=== PATIENT | female | born 1995 | race Caucasian/White ===

== ENCOUNTER 2018-05-29 08:07 | Emergency (ER) | payer SELFPAY ==
[~2018-05-29] VITALS: Ht 154.9 cm; Wt 87.5 kg
[2018-05-29] MEDS ORDERED: NS IV 1000 ML 1,000 ML IV ONE (08:32)
--- NOTE | 2018-05-29 08:45 | NUR ---
UNALBE TO GET FHT AT THIS X W DOPPLER
[2018-05-29 08:51] LABS: BASOPHILS % (AUTO) 0 % (0-10); EOSINOPHILS # (AUTO) 0.1 10^3/uL (0.0-0.3); EOSINOPHILS % (AUTO) 1 % (0-10); HEMATOCRIT 36 % (35-52); HEMOGLOBIN 11.5 G/DL (11.5-16.0); LYMPHOCYTES % (AUTO) 18 % (12-44); MEAN CORPUSCULAR HEMOGLOBIN 26 PG (25-34); MEAN CORPUSCULAR HGB CONC 32 G/DL (32-36); MEAN CORPUSCULAR VOLUME 81 FL (80-99); MEAN PLATELET VOLUME 12.3 FL (7.4-10.4); MONOCYTES # (AUTO) 0.9 X 10^3 (0.0-1.0); MONOCYTES % (AUTO) 8 % (0-12); NEUTROPHILS % (AUTO) 72 % (42-75); PLATELET COUNT 273 10^3/uL (130-400); RED CELL DISTRIBUTION WIDTH 14.8 % (10.0-14.5); WHITE BLOOD COUNT 11.1 10^3/uL (4.3-11.0)
[2018-05-29 09:11] LABS: ALANINE AMINOTRANSFERASE 21 U/L (0-55); ALBUMIN 3.9 GM/DL (3.2-4.5); ALKALINE PHOSPHATASE 81 U/L (40-136); BILIRUBIN,TOTAL 0.2 MG/DL (0.1-1.0); BUN/CREATININE RATIO 12; CALCIUM 9.1 MG/DL (8.5-10.1); CARBON DIOXIDE 22 MMOL/L (21-32); CHLORIDE 107 MMOL/L (98-107); CREATININE SERUM 0.68 MG/DL (0.60-1.30); GFR ESTIMATED > 60; GLUCOSE 100 MG/DL (70-105); POTASSIUM 3.9 MMOL/L (3.6-5.0); SODIUM 138 MMOL/L (135-145); TOTAL PROTEIN 7.4 GM/DL (6.4-8.2)
--- NOTE | 2018-05-29 09:15 | NUR ---
DR TALKING TO PT CO MISSCARRIAGE AND DR WYNN COMING TO SEE PT
--- NOTE | 2018-05-29 09:42 | ED GU-Female ---
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 PT IS APPROX 17WEEKS . NO CARE. Nursing Sepsis Screen: No Definite Risk Source: patient Exam Limitations: no limitations History of Present Illness Date Seen by Provider: May 29, 2018 Time Seen by Provider: 09:00 Initial Comments Here with report of intermittent cramping and vaginal bleeding/spotting for the last 2 days. We'll get this morning and had heavy bleeding and clots. Has had nausea and vomiting through this time. As well. She reports that she is approximately 17 weeks with her last menstrual period January 26. She did have positive test in February. She was due to see Dr. Sher today but started having increased bleeding and clots and presented to the emergency department. Denies fever or chills or upper respiratory symptoms. Timing/Duration: getting worse, other (2 days) Severity/Quality: moderate, cramping (like contractions) Location: suprapubic Radiation: back Activities at Onset: none Sexual Jarratt History: single partner Associated Symptoms: abdominal pain; No dysuria, No fever/chills; nausea/ vomiting; No urinary frequency Allergies and Home Medications Allergies Coded Allergies: No Known Drug Allergies (Unverified , 05/29/18) Home Medications No Active Prescriptions or Reported Meds Patient Home Medication List Home Medication List Reviewed: Yes Review of Systems Review of Systems Constitutional: see HPI; No chills, No fever EENTM: no symptoms reported Respiratory: no symptoms reported Cardiovascular: no symptoms reported Gastrointestinal: see HPI : Yes LMP: Jan 26, 2018 Musculoskeletal: see HPI Skin: no symptoms reported Psychiatric/Neurological: No Symptoms Reported All Other Systemes Reviewed Negative Unless Noted: Yes Past Dgdkjzp-Gffcjz-Euhscl Hx Past Med/Social Hx: Reviewed Nursing Past Med/Soc Hx Patient Social History Alcohol Use: Denies Use Recreational Drug Use: No Smoking Status: Never a Smoker Recent Foreign Travel: No Contact w/Someone Who Travel: No Recent Infectious Disease Expo: No Recent Hopitalizations: No Seasonal Allergies Seasonal Allergies: No Past Medical History Surgeries: No Respiratory: No Cardiac: No Neurological: No : Yes Last Menstrual Period: Jan 26, 2018 Hx : 4 Hx Para: 6 Hx Total # of Abortions (Sp): 1 Genitourinary: No Gastrointestinal: No Musculoskeletal: No Endocrine: No HEENT: No Cancer: No Psychosocial: No Integumentary: No Blood Disorders: No Family Medical History Reviewed Nursing Family Hx Physical Exam Vital Signs Vital Signs - First Documented 05/29/18 08:30 Temp 98.5 Pulse 79 Resp 18 B/P (MAP) 127/77 (94) Pulse Ox 99 Capillary Refill : Less Than 3 Seconds Height, Weight, BMI Height: 5'1.00" Weight: 193lbs. oz. 87.683791jp; BMI Method:Stated General Appearance: WD/WN, mild distress HEENT: PERRL/EOMI, pharynx normal Neck: full range of motion, supple Cardiovascular: regular rate, rhythm, no murmur Respiratory: lungs clear, normal breath sounds Gastrointestinal: non tender, soft Pelvic: vaginal bleeding, other (cervix open and dilated with bag and/or contents and cervical os.) Back: normal inspection, no CVA tenderness, no vertebral tenderness Extremities: non-tender, normal inspection Neurologic/Psychiatric: alert, normal mood/affect, oriented x 3 Skin: normal color, warm/dry Progress/Results/Core Measures Suspected Sepsis Recent Fever Within 48 Hours: No Infection Criteria Present: None New/Unexplained Altered Menta: No Sepsis Screen: No Definite Risk SIRS Temperature:98.5 Pulse: 79 Respiratory Rate: 18 Laboratory Tests 05/29/18 08:42: White Blood Count 11.1H Blood Pressure 127 /77 Mean: 94 Laboratory Tests 05/29/18 08:42: Creatinine 0.68, Platelet Count 273, Total Bilirubin 0.2 Results/Orders Lab Results Laboratory Tests Test 05/29/18 08:42 Range/Units White Blood Count 11.1 H 4.3-11.0 10^3/uL Red Blood Count 4.44 4.35-5.85 10^6/uL Hemoglobin 11.5 11.5-16.0 G/DL Hematocrit 36 35-52 % Mean Corpuscular Volume 81 80-99 FL Mean Corpuscular Hemoglobin 26 25-34 PG Mean Corpuscular Hemoglobin Concent 32 32-36 G/DL Red Cell Distribution Width 14.8 H 10.0-14.5 % Platelet Count 273 130-400 10^3/uL Mean Platelet Volume 12.3 H 7.4-10.4 FL Neutrophils (%) (Auto) 72 42-75 % Lymphocytes (%) (Auto) 18 12-44 % Monocytes (%) (Auto) 8 0-12 % Eosinophils (%) (Auto) 1 0-10 % Basophils (%) (Auto) 0 0-10 % Neutrophils # (Auto) 8.0 H 1.8-7.8 X 10^3 Lymphocytes # (Auto) 2.0 1.0-4.0 X 10^3 Monocytes # (Auto) 0.9 0.0-1.0 X 10^3 Eosinophils # (Auto) 0.1 0.0-0.3 10^3/uL Basophils # (Auto) 0.0 0.0-0.1 10^3/uL Sodium Level 138 135-145 MMOL/L Potassium Level 3.9 3.6-5.0 MMOL/L Chloride Level 107 98-107 MMOL/L Carbon Dioxide Level 22 21-32 MMOL/L Anion Gap 9 5-14 MMOL/L Blood Urea Nitrogen 8 7-18 MG/DL Creatinine 0.68 0.60-1.30 MG/DL Estimat Glomerular Filtration Rate > 60 BUN/Creatinine Ratio 12 Glucose Level 100 70-105 MG/DL Calcium Level 9.1 8.5-10.1 MG/DL Corrected Calcium 9.2 8.5-10.1 MG/DL Total Bilirubin 0.2 0.1-1.0 MG/DL Aspartate Amino Transf (AST/SGOT) 24 5-34 U/L Alanine Aminotransferase (ALT/SGPT) 21 0-55 U/L Alkaline Phosphatase 81 40-136 U/L Total Protein 7.4 6.4-8.2 GM/DL Albumin 3.9 3.2-4.5 GM/DL My Orders Orders - DAVID BOWEN MD Cbc With Automated Diff (05/29/18 08:31) Abo Rh Type (05/29/18 08:31) Us Ob Preg Late(14-40wks)84392 (05/29/18 08:31) Comprehensive Metabolic Panel (05/29/18 08:31) Saline Lock/Iv-Start (05/29/18 08:31) Saline Lock/Iv-Start (05/29/18 08:31) Ns Iv 1000 Ml (Sodium Chloride 0.9%) (05/29/18 08:32) Ketorolac Injection (Toradol Injection) (05/29/18 10:12) Medications Given in ED Current Medications Medications Dose Ordered Sig/Olivia Route Start Time Stop Time Status Last Admin Dose Admin Carboprost Tromethamine 250 mcg ONCE ONCE IM 05/29/18 10:30 05/29/18 10:31 DC 05/29/18 10:35 250 MCG Carboprost Tromethamine 250 mcg Q15M PRN IM 05/29/18 10:30 05/29/18 15:00 05/29/18 11:14 250 MCG Fentanyl Citrate 50 mcg ONCE ONCE IVP 05/29/18 10:30 05/29/18 10:31 DC 05/29/18 10:35 50 MCG Ketorolac Tromethamine 30 mg STK-MED ONCE .ROUTE 05/29/18 10:12 05/29/18 10:14 DC 05/29/18 10:20 30 MG Sodium Chloride 1,000 ml @ 0 mls/hr Q0M ONCE IV 05/29/18 08:32 05/29/18 08:33 DC 05/29/18 08:42 1,000 MLS/HR Vital Signs/I&O 05/29/18 08:30 Temp 98.5 Pulse 79 Resp 18 B/P (MAP) 127/77 (94) Pulse Ox 99 Capillary Refill : Less Than 3 Seconds Blood Pressure Mean: 94 Progress Note : Progress Note Seen and evaluated. IV, labs, ultrasound pelvis ordered. Ultrasound does show intrauterine demise with miscarriage in progress and sac as well as fetus within the cervical os. No heartbeat detected. Manual exam performed and confirms cervical os open and dilated with contents within the cervical os structure. I did make contact with Dr. Francois who is in [place] and requested I talk with on-call OB. I did discuss with Dr. Burch who recommended on-call OB and then I talked with Dr. Varela who will come see the patient in the emergency department. Patient is O+. 0930: Second IV initiated. Patient currently comfortable. 0952: Dr. Varela here evaluating. 1030: Fetus has delivered but placenta has not. Dr. Varela is managing currently. 1145: Placenta has passed. Patient still has some bleeding. 1225: Dr. Varela is okay with discharge home now. May still have a little bleeding but should improve markedly. We will initiate antibiotics as well as ibuprofen and Tylenol as needed for pain. Small prescription for hydrocodone if needed per Dr. Varela's recommendation. I'll just was discussed with the patient and family who agree with plan. Discharged home with return precautions. Patient verbalize understanding instructions. Diagnostic Imaging Diagonstic Imaging: Ultrasound Plain Films/CT/US/NM/MRI: pelvis Comments NAME: DARIEN [facility]A [facility] REC#: [id number] PT STATUS: REG ER : 1995 PHYSICIAN: DAVID BOWEN MD ADMIT DATE: 05/29/18/ER Draft Date of Exam:05/29/18 US OB PREG LATE(14-40WKS)[id number] INDICATION: patient with vaginal bleeding. TECHNIQUE: OB sonography was performed with transabdominal views. FINDINGS: The uterus measures 12.6 x 8.5 x 8.5 cm. The fetus is visualized near the cervix and there were no detectable heart tones. The size is difficult to measure due to the angle present but appears to be about 12 weeks 5 days. The ovaries could not be seen. There was no free fluid. IMPRESSION: Findings are compatible with demise with no heart tones present. The fetus is at or near the cervix. The approximate age is about 12 weeks 5 days although measurement was difficult due to the angle present. The ovaries could not be visualized but there was no free fluid seen. Dictated on workstation # [id number] Dict: 05/29/18 0943 Trans: 05/29/18 0955 [id number] Interpreted by: MONTSE CORRAL MD Electronically signed by: Departure Impression Primary Impression: Complete miscarriage Disposition: 01 HOME, SELF-CARE Condition: Stable Departure-Patient Inst. Decision time for Depature: 12:31 Referrals: IVONNE FRANCOIS ANGELA C DO Patient Instructions: Miscarriage (DC) Add. Discharge Instructions: All discharge instructions reviewed with patient and/or family. Voiced understanding. Drink plenty of fluids. You may take ibuprofen 800 mg every 8 hours as needed for pain. You may take Tylenol/acetaminophen 1000 mg every 8 hours or prescribed pain medicine but do not take both at the same time as they both have acetaminophen in them. Follow-up with Dr. Francois or Dr. Varela for recheck and further evaluation. Return for worse pain, fever, vomiting, weakness, breathing problems, vaginal bleeding greater than 2 pads per hour for more than 2 hours or other concerns as needed. Take antibiotics as directed. Scripts Hydrocodone Bit/Acetaminophen (Hydrocodone/Acetaminophen 5/325mg Tablet) 1 Tab Tab 1-2 EACH PO Q6H PRN for PAIN-MODERATE MDD 10, #10 TAB 0 Refills Prov: DAVID BOWEN MD 05/29/18 Amoxicillin/Potassium Clav (Augmentin 875-125 Tablet) 1 Each Tablet 1 EACH PO BID, #10 TAB 0 Refills Prov: DAVID BOWEN MD 05/29/18 DAVID BOWEN MD May 29, 2018 09:42
--- NOTE | 2018-05-29 09:55 | Diagnostic Imaging Report ---
INDICATION: patient with vaginal bleeding. TECHNIQUE: OB sonography was performed with transabdominal views. FINDINGS: The uterus measures 12.6 x 8.5 x 8.5 cm. The fetus is visualized near the cervix and there were no detectable heart tones. The size is difficult to measure due to the angle present but appears to be about 12 weeks 5 days. The ovaries could not be seen. There was no free fluid. IMPRESSION: Findings are compatible with demise with no heart tones present. The fetus is at or near the cervix. The approximate age is about 12 weeks 5 days although measurement was difficult due to the angle present. The ovaries could not be visualized but there was no free fluid seen. Dictated by: Dictated on workstation # [id number]
[2018-05-29] MEDS ORDERED: KETOROLAC 30 MG/ML VIAL ONE (10:12)
--- NOTE | 2018-05-29 10:15 | NUR ---
FETUS DELIVERED BY DR WYNN WHEN SPECTULUM INSERTED. PLACENTA NOT DELIVERED
--- NOTE | 2018-05-29 10:21 | Consultation ---
History of Present Illness History of Present Illness Patient Consulted On(ema/time) 05/29/18 10:20 Date Seen by Provider: May 29, 2018 Time Seen by Provider: 10:00 Allergies and Home Medications Allergies Coded Allergies: No Known Drug Allergies (Unverified , 05/29/18) Home Medications No Active Prescriptions or Reported Meds Past Vkvvfnu-Acqwyo-Mpznwo Hx Past Med/Social Hx: Reviewed Nursing Past Med/Soc Hx Patient Social History Alcohol Use: Denies Use Recreational Drug Use: No Smoking Status: Never a Smoker Recent Foreign Travel: No Contact w/Someone Who Travel: No Recent Infectious Disease Expo: No Recent Hopitalizations: No Seasonal Allergies Seasonal Allergies: No Past Medical History Surgeries: No Respiratory: No Cardiac: No Neurological: No : Yes Last Menstrual Period: Jan 26, 2018 Hx : 4 Hx Para: 6 Hx Total # of Abortions (Sp): 1 Genitourinary: No Gastrointestinal: No Musculoskeletal: No Endocrine: No HEENT: No Cancer: No Psychosocial: No Integumentary: No Blood Disorders: No Family Medical History Reviewed Nursing Family Hx Physical Exam-General Problems Physical Exam Vital Signs Vital Signs - First Documented 05/29/18 08:30 Temp 98.5 Pulse 79 Resp 18 B/P (MAP) 127/77 (94) Pulse Ox 99 Capillary Refill : Less Than 3 Seconds JASEN WYNN DO May 29, 2018 10:21
[2018-05-29] MEDS ORDERED: CARBOPROST (HEMABATE) 250 MCG/ML AMP IM ONE (10:30)
[2018-05-29] MEDS ORDERED: fentaNYL INJECTION 100 MCG/2 ML AMP IVP ONE (10:30)
[2018-05-29] MEDS ORDERED: CARBOPROST (HEMABATE) 250 MCG/ML AMP IM PRN (10:30)
[2018-05-29] MEDS ORDERED: DIPHENOXYLATE/ATROPINE 2.5MG/0.025MG (LOMOTIL) TAB PO PRN (10:30)
[2018-05-29] MEDS ORDERED: KETOROLAC 30 MG/ML VIAL IVP ONE (10:30)
[2018-05-29] MEDS ORDERED: MISOPROSTOL 200 MCG (CYTOTEC) TABLET PR ONE (10:30)
--- NOTE | 2018-05-29 11:35 | NUR ---
PLACENTA PASSED DR BOWEN IN ROOM TO CHECK PT
[2018-05-29] MEDS ORDERED: AMOX-358 PO (12:36)
[2018-05-29] MEDS ORDERED: ACHD5005 PO (12:36)
[2018-05-29 12:59] VITALS: BP 127/77
== END 2018-05-29 12:59 | disposition home or self-care (01) ==
LOC: ER 08:08
DX: O03.9 Complete or unspecified spontaneous abortion without complication (principal); Z3A.17 17 weeks gestation of pregnancy
CPT/HCPCS: 36415; 76805; 80053; 85025; 86900; 86901; 96361; 96372; 96374; 96375

== ENCOUNTER 2019-02-12 19:39 | Emergency (ER) | payer MEDICAID, OTHER ==
[~2019-02-12] VITALS: Ht 154.9 cm; Wt 89.3 kg
[~2019-02-12 19:39] MED LIST: ACHD5005 PO; AMOX-358 PO
--- NOTE | 2019-02-12 20:13 | ED GI ---
General Chief Complaint: Abdominal/GI Problems Stated Complaint: N,V,D,27 WEEKS History of Present Illness Date Seen by Provider: Feb 12, 2019 Time Seen by Provider: 20:00 Initial Comments H is 27 week female 7 4 live births and 2 miscarriages here with nausea vomiting diarrhea since this morning loose stools to watery stools no blood vomiting food and liquid with some mild no blood. Some fever no chills will or no by mouth intake. Timing/Duration: 12 Hours Severity/Quality: Moderate Radiation: No Radiation Modifying Factors: Worsens With Eating, Worsens With Movement; Improves With Vomiting Associated Symptoms: No Chest Pain; Fever/Chills, Fatigue; No Headache; Weakness Allergies and Home Medications Allergies Coded Allergies: No Known Drug Allergies (Unverified , 05/29/18) Home Medications Amoxicillin/Potassium Clav 1 Each Tablet, 1 EACH PO BID Prescribed by: DAVID BOWEN on 05/29/18 1236 Hydrocodone Bit/Acetaminophen 1 Tab Tab, 1-2 EACH PO Q6H PRN for PAIN-MODERATE Prescribed by: DAVID BOWEN on 05/29/18 1236 Ondansetron 4 Mg Tab.rapdis, 4 MG PO Q8H Prescribed by: JAMES NESBITT on 02/12/192109 Ondansetron HCl 4 Mg Tab, 4 MG PO Q8H Prescribed by: JAMES NESBITT on 02/12/192115 Patient Home Medication List Home Medication List Reviewed: Yes Review of Systems Review of Systems Constitutional: chills, fever, malaise, weakness EENTM: No Symptoms Reported Respiratory: No Symptoms Reported Cardiovascular: No Symptoms Reported Gastrointestinal: Denies Abdomen Distended, Denies Abdominal Pain, Denies Constipated; Diarrhea, Nausea Genitourinary: No Symptoms Reported Musculoskeletal: No joint swelling; muscle pain Skin: No lesions, No rash Psychiatric/Neurological: No Symptoms Reported Past Qawwtcj-Epkxjb-Zceevr Hx Past Med/Social Hx: Reviewed Nursing Past Med/Soc Hx Patient Social History Recent Foreign Travel: No Contact w/Someone Who Travel: No Recent Hopitalizations: No Seasonal Allergies Seasonal Allergies: No Past Medical History Surgeries: No Respiratory: No Cardiac: No Neurological: No Genitourinary: No Gastrointestinal: No Musculoskeletal: No Endocrine: No HEENT: No Cancer: No Psychosocial: No Integumentary: No Blood Disorders: No Physical Exam Vital Signs Vital Signs - First Documented 02/12/19 19:45 Temp 36.3 Pulse 95 Resp 16 B/P (MAP) 109/66 (80) Pulse Ox 98 O2 Delivery Room Air Capillary Refill : Height/Weight/BMI Height: 5'1.00" Weight: 193lbs. oz. 87.551444rt; BMI Method:Stated General Appearance: WD/WN, mild distress HEENT: PERRL/EOMI, TMs normal, other Neck: non-tender (dry mucous membranes), full range of motion Respiratory: lungs clear, normal breath sounds Cardiovascular: regular rate, rhythm, no murmur Gastrointestinal: abnormal bowel sounds (quiet); No distended, No guarding, No rebound, No tenderness Extremities: no pedal edema, normal capillary refill Neurologic/Psychiatric: no motor/sensory deficits, alert, oriented x 3 Skin: normal color, warm/dry Lymphatic: no adenopathy Progress/Results/Core Measures Results/Orders Lab Results Laboratory Tests Test 02/12/19 20:16 02/12/19 20:20 Range/Units White Blood Count 17.0 H 4.3-11.0 10^3/uL Red Blood Count 4.16 L 4.35-5.85 10^6/uL Hemoglobin 9.5 L 11.5-16.0 G/DL Hematocrit 32 L 35-52 % Mean Corpuscular Volume 76 L 80-99 FL Mean Corpuscular Hemoglobin 23 L 25-34 PG Mean Corpuscular Hemoglobin Concent 30 L 32-36 G/DL Red Cell Distribution Width 14.8 H 10.0-14.5 % Platelet Count 279 130-400 10^3/uL Mean Platelet Volume 12.7 H 7.4-10.4 FL Neutrophils (%) (Auto) 90 H 42-75 % Lymphocytes (%) (Auto) 4 L 12-44 % Monocytes (%) (Auto) 5 0-12 % Eosinophils (%) (Auto) 0 0-10 % Basophils (%) (Auto) 0 0-10 % Neutrophils # (Auto) 15.3 H 1.8-7.8 X 10^3 Lymphocytes # (Auto) 0.7 L 1.0-4.0 X 10^3 Monocytes # (Auto) 0.8 0.0-1.0 X 10^3 Eosinophils # (Auto) 0.0 0.0-0.3 10^3/uL Basophils # (Auto) 0.0 0.0-0.1 10^3/uL Sodium Level 138 135-145 MMOL/L Potassium Level 4.0 3.6-5.0 MMOL/L Chloride Level 105 98-107 MMOL/L Carbon Dioxide Level 19 L 21-32 MMOL/L Anion Gap 14 5-14 MMOL/L Blood Urea Nitrogen 11 7-18 MG/DL Creatinine 0.48 L 0.60-1.30 MG/DL Estimat Glomerular Filtration Rate > 60 BUN/Creatinine Ratio 23 Glucose Level 104 70-105 MG/DL Calcium Level 9.1 8.5-10.1 MG/DL Corrected Calcium 9.4 8.5-10.1 MG/DL Total Bilirubin 0.3 0.1-1.0 MG/DL Aspartate Amino Transf (AST/SGOT) 14 5-34 U/L Alanine Aminotransferase (ALT/SGPT) < 5 0-55 U/L Alkaline Phosphatase 99 40-136 U/L Total Protein 7.9 6.4-8.2 GM/DL Albumin 3.6 3.2-4.5 GM/DL My Orders Orders - JAMES NESBITT JR, MD Cbc And Manual Diff (02/12/19 20:06) Comprehensive Metabolic Panel (02/12/19 20:06) Ua Culture If Indicated (02/12/19 20:06) Ns Iv 1000 Ml (Sodium Chloride 0.9%) (02/12/19 20:15) Ondansetron Injection (Zofran Injectio (02/12/19 20:15) Rx-Ondansetron Po (Rx-Zofran Po) (02/12/19 21:15) Medications Given in ED Current Medications Medications Dose Ordered Sig/Olivia Route Start Time Stop Time Status Last Admin Dose Admin Ondansetron HCl 4 mg ONCE ONCE IVP 02/12/19 20:15 02/12/19 20:16 DC 02/12/19 20:19 4 MG Sodium Chloride 1,000 ml @ 999 mls/hr Q1H ONCE IV 02/12/19 20:15 02/12/19 21:15 DC 02/12/19 20:19 999 MLS/HR Vital Signs/I&O 02/12/19 19:45 Temp 36.3 Pulse 95 Resp 16 B/P (MAP) 109/66 (80) Pulse Ox 98 O2 Delivery Room Air Departure Impression Primary Impression: Gastroenteritis Disposition: 01 HOME, SELF-CARE Condition: Stable Departure-Patient Inst. Referrals: NO,LOCAL PHYSICIAN (PCP/Family) Primary Care Physician Patient Instructions: Nausea and Vomiting, Adult Add. Discharge Instructions: All discharge instructions reviewed with patient and/or family. Voiced understanding. Scripts Ondansetron (Ondansetron Odt) 4 Mg Tab.rapdis 4 MG PO Q8H, #7 TAB Prov: JAMES NESBITT JR, MD 02/12/19 Ondansetron HCl (Zofran) 4 Mg Tab 4 MG PO Q8H, #7 TAB Prov: JAMES NESBITT JR, MD 02/12/19 JAMES NESBITT JR, MD Feb 12, 2019 20:13 POS
[2019-02-12] MEDS ORDERED: ONDANSETRON 4 MG/2 ML (SDV) Z0FRAN IVP ONE (20:15)
[2019-02-12] MEDS ORDERED: NS IV 1000 ML 1,000 ML IV ONE (20:15)
[2019-02-12 20:52] LABS: HEMATOCRIT 32 % (35-52); HEMOGLOBIN 9.5 G/DL (11.5-16.0); MEAN CORPUSCULAR HEMOGLOBIN 23 PG (25-34); MEAN CORPUSCULAR HGB CONC 30 G/DL (32-36); MEAN CORPUSCULAR VOLUME 76 FL (80-99); MEAN PLATELET VOLUME 12.7 FL (7.4-10.4); PLATELET COUNT 279 10^3/uL (130-400); RED CELL DISTRIBUTION WIDTH 14.8 % (10.0-14.5)
[2019-02-12 20:53] LABS: BASOPHILS % (AUTO) 0 % (0-10); EOSINOPHILS % (AUTO) 0 % (0-10); LYMPHOCYTES # (AUTO) 0.7 X 10^3 (1.0-4.0); LYMPHOCYTES % (AUTO) 4 % (12-44); MONOCYTES # (AUTO) 0.8 X 10^3 (0.0-1.0); MONOCYTES % (AUTO) 5 % (0-12); NEUTROPHILS # (AUTO) 15.3 X 10^3 (1.8-7.8); NEUTROPHILS % (AUTO) 90 % (42-75)
[2019-02-12 21:02] LABS: ALANINE AMINOTRANSFERASE < 5 U/L (0-55); ALKALINE PHOSPHATASE 99 U/L (40-136); BILIRUBIN,TOTAL 0.3 MG/DL (0.1-1.0); BUN/CREATININE RATIO 23; CALCIUM 9.1 MG/DL (8.5-10.1); CARBON DIOXIDE 19 MMOL/L (21-32); CHLORIDE 105 MMOL/L (98-107); CREATININE SERUM 0.48 MG/DL (0.60-1.30); GFR ESTIMATED > 60; GLUCOSE 104 MG/DL (70-105); SODIUM 138 MMOL/L (135-145); TOTAL PROTEIN 7.9 GM/DL (6.4-8.2)
[2019-02-12 21:03] LABS: ALBUMIN 3.6 GM/DL (3.2-4.5)
[2019-02-12] MEDS ORDERED: ONDN4T PO (21:09)
[2019-02-12] MEDS ORDERED: ONDA4TAB11 PO (21:10)
[2019-02-12] MEDS ORDERED: RX-ONDANSETRON 4 MG ODT (ZOFRAN) PPK #4 PO PRN (21:15)
[2019-02-12 21:18] VITALS: BP 109/66
[2019-02-12 21:19] LABS: BAND NEUTROPHILS 3 %; BASOPHILS % (MANUAL) 1 %; EOSINOPHILS % (MANUAL) 1 %; LYMPHOCYTES % (MANUAL) 4 %; MONOCYTES % (MANUAL) 5 %; NEUTROPHILS % (MANUAL) 86 %
[2019-02-12 21:20] LABS: HYPOCHROMASIA SLIGHT
[2019-02-12 21:30] LABS: BACTERIA,URINE FEW /HPF; BILIRUBIN,URINE 1+ (NEGATIVE); CLARITY,URINE SLT CLOUDY; COLOR,URINE YELLOW; GLUCOSE, URINE (UA) NEGATIVE (NEGATIVE); KETONES,URINE 3+ (NEGATIVE); LEUKOCYTE ESTERASE ,URINE TRACE (NEGATIVE); NITRITE,URINE NEGATIVE (NEGATIVE); PROTEIN,URINE NEGATIVE (NEGATIVE)
--- OUTSIDE RECORDS SUMMARY | 2019-03-10 10:34 | XMS REPORT | Continuity of Care Document ---
Author Organization Unknown Address Unknown Phone Unavailable Allergies Active Description Code Type Severity Reaction Onset Reported/Identified Relationship to Patient Clinical Status Yes No Known Drug Allergies [id number] Drug Allergy Unknown N/A 05/29/2018 Medications There is no data. Problems Date Dx Coded Attending Type Code Diagnosis Diagnosed By 02/12/2019 JAMES NESBITT MD, Ot K52.9 NONINFECTIVE GASTROENTERITIS AND COLITIS 02/12/2019 JAMES NESBITT MD, Ot O99.612 DISEASES OF THE DGSTV SYS COMP 02/12/2019 JAMES NESBITT MD, Ot R11.2 NAUSEA WITH VOMITING, UNSPECIFIED 02/12/2019 JAMES NESBITT MD, Ot Z3A.27 27 WEEKS GESTATION OF Procedures There is no data. Results Test Result Range Complete blood count (CBC) with automate d white blood cell (WBC) differential - 05/29/18 08:42 Blood leukocytes automated count (number/volume) 11.1 10*3/uL 4.3-11.0 Blood erythrocytes automated count (number/volume) 4.44 10*6/uL 4.35-5.85 Venous blood hemoglobin measurement (mass/volume) 11.5 g/dL 11.5-16.0 Blood hematocrit (volume fraction) 36 % 35-52 Automated erythrocyte mean corpuscular volume 81 [ foz_us] 80-99 Automated erythrocyte mean corpuscular h emoglobin (mass per erythrocyte) 26 pg 25-34 Automated erythrocyte mean corpuscular h emoglobin concentration measurement (mass/volume) 32 g/dL 32-36 Automated erythrocyte distribution width ratio 14. 8 % 10.0- 14.5 Automated blood platelet count (count/volume) 273 10*3/uL 130-400 Automated blood platelet mean volume measurement 12.3 [foz_us] 7.4-10.4 Automated blood neutrophils/100 leukocytes 72 % 42-75 Automated blood lymphocytes/100 leukocytes 18 % 12-44 Blood monocytes/100 leukocytes 8 % 0-12 Automated blood eosinophils/100 leukocytes 1 % 0-10 Automated blood basophils/100 leukocytes 0 % 0-10 Blood neutrophils automated count (number/volume) 8.0 10*3 1.8-7.8 Blood lymphocytes automated count (number/volume) 2.0 10*3 1.0-4.0 Blood monocytes automated count (number/volume) 0. 9 10*3 0.0-1.0 Automated eosinophil count 0.1 10*3/uL 0 .0-0.3 Automated blood basophil count (count/volume) 0.0 10*3/uL 0.0-0.1 Comprehensive metabolic panel - 05/29/18 08:42 Serum or plasma sodium measurement (moles/volume) 138 mmol/L 135-145 Serum or plasma potassium measurement (moles/volume) 3.9 mmol/L 3.6-5.0 Serum or plasma chloride measurement (moles/volume) 107 mmol/L 98-107 Carbon dioxide 22 mmol/L 21-32 Serum or plasma anion gap determination (moles/volume) 9 mmol/L 5-14 Serum or plasma urea nitrogen measurement (mass/volume ) 8 mg/dL 7-18 Serum or plasma creatinine measurement (mass/volume) 0.68 mg/dL 0.60-1.30 Serum or plasma urea nitrogen/creatinine mass ratio 12 NRG Serum or plasma creatinine measurement w ith calculation of estimated glomerular filtration rate > NRG Serum or plasma glucose measurement (mass/volume) 100 mg/dL 70-105 Serum or plasma calcium measurement (mass/volume) 9.1 mg/dL 8.5-10.1 Serum or plasma total bilirubin measurement (mass/volu me) 0.2 mg/dL 0.1-1.0 Serum or plasma alkaline phosphatase alex surement (enzymatic activity/volume) 81 U/L 40-136 Serum or plasma aspartate aminotransfera se measurement (enzymatic activity/volume) 24 U/L 5-34 Serum or plasma alanine aminotransferase measurement (enzymatic activity/volume) 21 U/L 0-55 Serum or plasma protein measurement (mass/volume) 7.4 g/dL 6.4-8.2 Serum or plasma albumin measurement (mass/volume) 3.9 g/dL 3.2-4.5 CALCIUM CORRECTED 9.2 mg/dL 8.5-10.1 ABO+Rh group - 05/29/18 08:42 ABO+Rh group OP NRG Transfusion band number [id number] NRG GC/CHLAMYDIA (SWAB OR URINE)-RAPID - 16:09 CHLAMYDIA TRACHOMATIS RNA, TMA NOT DETECTED NOT DETECTED NEISSERIA GONORRHOEAE RNA, TMA NOT DETECTED NOT DETECTED COMMENT NRG SUREPATH PAP RFX HPV mRNA E6/E7 - 16:09 CLINICAL INFORMATION: NRG LMP: NRG PREV. PAP: NRG PREV. BX: NRG SOURCE: Vagina NRG STATEMENT OF ADEQUACY: NRG INTERPRETATION/RESULT: NRG TELEPHONE ORDER DISPATCHER: NRG COMMENT NRG HEPATITIS PROFILE - 11/29/18 17:06 HEPATITIS A IGM NON-REACTIVE NON-REACTI VE HEPATITIS B SURFACE ANTIGEN NON-REACTIVE NON-REACTIVE HEPATITIS B CORE ANTIBODY (IGM) NON-REACTIVE NON-REACTIVE HEPATITIS C ANTIBODY NON-REACTIVE NON-R EACTIVE SIGNAL TO CUT-OFF 0.16 <1.00 HIV ANTIGEN/ANTIBODY - 11/29/18 17:06 HIV AG/AB, 4TH GEN NON-REACTIVE NON-JACEK CTIVE CBC - 11/29/18 17:06 WHITE BLOOD CELL COUNT 11.3 Thousand/uL 3.8-10.8 RED BLOOD CELL COUNT 4.14 Million/uL 3.8 0-5.10 HEMOGLOBIN 9.7 g/dL 11.7-15.5 HEMATOCRIT 31.3 % 35.0-45.0 MCV 75.6 fL 80.0-100.0 MCH 23.4 pg 27.0-33.0 MCHC 31.0 g/dL 32.0-36.0 RDW 16.4 % 11.0-15.0 PLATELET COUNT 271 Thousand/uL 140-400 MPV 12.6 fL 7.5-12.5 ABSOLUTE NEUTROPHILS 8362 cells/uL 1500- 7800 ABSOLUTE LYMPHOCYTES 2034 cells/uL 850-3 900 ABSOLUTE MONOCYTES 836 cells/uL 200-950 ABSOLUTE EOSINOPHILS 45 cells/uL 15-500 ABSOLUTE BASOPHILS 23 cells/uL 0-200 NEUTROPHILS 74 % NRG LYMPHOCYTES 18.0 % NRG MONOCYTES 7.4 % NRG EOSINOPHILS 0.4 % NRG BASOPHILS 0.2 % NRG BLOOD TPYE/RH FACTOR - 11/29/18 17:06 ABO GROUP O NRG RH TYPE RH(D) POSITIVE NRG SYPHILIS (RPR W/ REFLEX CONFIRMATION) - 11/29/18 17:06 RPR (DX) W/REFL TITER AND CONFIRMATORY TESTING NON-REACTIVE NON-REACTIVE QUAD SCREEN - 11/29/18 17:06 Maternal Weight 188 lbs NRG Est'd Date of Delivery 05/10/2019 NRG ALLIE Determined by LMP NRG Mother's Ethnic Origin NRG Number of Fetuses 1 NRG Insulin Depend Diabetic NO NRG Repeat Specimen NO NRG Hx Of Neural Tube Defects NO NRG Prev Down Synd NO NRG Donor Egg NO NRG Donor Age: Egg Retrieval NOT GIVEN NRG INTERPRETATION: NRG Risk for ONTD <1 IN 5000 NRG Age Risk Down Syndrome 1 IN 1006 NRG AMBROSE Down Syndrome Risk <1 IN 5000 NRG AMBROSE Trisomy 18 Risk <1 IN 5000 NRG AFP, Serum 19.5 ng/mL NRG AFP MoM 0.62 NRG Estriol, Free 0.97 ng/mL NRG Estriol MoM 1.10 NRG hCG, Serum 17.78 IU/mL NRG hCG MoM 0.70 NRG Inhibin A, Dimeric 157 pg/mL NRG Inhibin A MoM 1.05 NRG COMMENTS: NRG COMMENT NRG Calc'd Gestational Age 16.9 weeks NRG Cigarette smoker NOT GIVEN NRG RUBELLA IMMUNE STATUS - 11/29/18 17:06 RUBELLA ANTIBODY (IGG) 1.96 index NRG TEST IN QUESTION- MISSING REQUIRED INFO - 11/29/18 17:06 COMMENT NRG MISSING INFO: NRG RESOLUTION: NRG COMMENT NRG Blood CBC with ordered manual differenti al panel - 02/12/19 20:16 Blood leukocytes automated count (number/volume) 17.0 10*3/uL 4.3-11.0 Blood erythrocytes automated count (number/volume) 4.16 10*6/uL 4.35-5.85 Venous blood hemoglobin measurement (mass/volume) 9.5 g/dL 11.5-16.0 Blood hematocrit (volume fraction) 32 % 35-52 Automated erythrocyte mean corpuscular volume 76 [ foz_us] 80-99 Automated erythrocyte mean corpuscular h emoglobin (mass per erythrocyte) 23 pg 25-34 Automated erythrocyte mean corpuscular h emoglobin concentration measurement (mass/volume) 30 g/dL 32-36 Automated erythrocyte distribution width ratio 14. 8 % 10.0- 14.5 Automated blood platelet count (count/volume) 279 10*3/uL 130-400 Automated blood platelet mean volume measurement 12.7 [foz_us] 7.4-10.4 Automated blood neutrophils/100 leukocytes 90 % 42-75 Automated blood lymphocytes/100 leukocytes 4 % 12-44 Blood monocytes/100 leukocytes 5 % NRG Automated blood eosinophils/100 leukocytes 0 % 0-10 Automated blood basophils/100 leukocytes 0 % 0-10 Blood neutrophils automated count (number/volume) 15.3 10*3 1.8-7.8 Blood lymphocytes automated count (number/volume) 0.7 10*3 1.0-4.0 Blood monocytes automated count (number/volume) 0. 8 10*3 0.0-1.0 Automated eosinophil count 0.0 10*3/uL 0 .0-0.3 Automated blood basophil count (count/volume) 0.0 10*3/uL 0.0-0.1 Manual blood segmented neutrophils/100 leukocytes 86 % NRG Blood band neutrophils/100 leukocytes 3 % NRG Manual blood lymphocytes/100 leukocytes 4 % NRG Manual eosinophils/100 leukocytes in nose 1 % NRG Manual blood basophils/100 leukocytes 1 % NRG Blood hypochromia detection by light microscopy [facility] NR Comprehensive metabolic panel - 02/12/19 20:16 Serum or plasma sodium measurement (moles/volume) 138 mmol/L 135-145 Serum or plasma potassium measurement (moles/volume) 4.0 mmol/L 3.6-5.0 Serum or plasma chloride measurement (moles/volume) 105 mmol/L 98-107 Carbon dioxide 19 mmol/L 21-32 Serum or plasma anion gap determination (moles/volume) 14 mmol/L 5-14 Serum or plasma urea nitrogen measurement (mass/volume ) 11 mg/dL 7-18 Serum or plasma creatinine measurement (mass/volume) 0.48 mg/dL 0.60-1.30 Serum or plasma urea nitrogen/creatinine mass ratio 23 NRG Serum or plasma creatinine measurement w ith calculation of estimated glomerular filtration rate > NRG Serum or plasma glucose measurement (mass/volume) 104 mg/dL 70-105 Serum or plasma calcium measurement (mass/volume) 9.1 mg/dL 8.5-10.1 Serum or plasma total bilirubin measurement (mass/volu me) 0.3 mg/dL 0.1-1.0 Serum or plasma alkaline phosphatase alex surement (enzymatic activity/volume) 99 U/L 40-136 Serum or plasma aspartate aminotransfera se measurement (enzymatic activity/volume) 14 U/L 5-34 Serum or plasma alanine aminotransferase measurement (enzymatic activity/volume) < U/L 0-55 Serum or plasma protein measurement (mass/volume) 7.9 g/dL 6.4-8.2 Serum or plasma albumin measurement (mass/volume) 3.6 g/dL 3.2-4.5 CALCIUM CORRECTED 9.4 mg/dL 8.5-10.1 Complete urinalysis with reflex to cultu re - 02/12/19 20:20 Urine color determination YELLOW NRG Urine clarity determination SLT CLOUDY NRG Urine pH measurement by test strip 6.0 5-9 Specific gravity of urine by test strip 1.025 1.016-1.022 Urine protein assay by test strip, semi-quantitative NEGATIVE NEGATIVE Urine glucose detection by automated test strip NE GATIVE NEGATIVE Erythrocytes detection in urine sediment by light micr oscopy NEGATIVE NEGATIVE Urine ketones detection by automated test strip 3+ NEGATIVE Urine nitrite detection by test strip NEGATIVE NEGATIVE Urine total bilirubin detection by test strip 1+ NEGATIVE Urine urobilinogen measurement by automated test strip (mass/volume) 0.2 mg/dL < = 1.0 Urine leukocyte esterase detection by dipstick TRA CE NEGATIVE Automated urine sediment erythrocyte cou nt by microscopy (number/high power field) NONE NRG Automated urine sediment leukocyte count by microscopy (number/high power field) [HPF] NRG Bacteria detection in urine sediment by light microsco py FEW NRG Squamous epithelial cells detection in u rine sediment by light microscopy 5-10 NRG Crystals detection in urine sediment by light microsco py NONE NRG Casts detection in urine sediment by light microscopy NONE NRG Mucus detection in urine sediment by light microscopy MODERATE NRG Complete urinalysis with reflex to culture YES NRG Bacterial urine culture - 02/12/19 20:20 Bacterial urine culture 3 OR MORE NRG COLONY COUNT >100,000/ML NRG FTX;REPORTABLE GRAM POSTIVES, SUGGESTING PROBABLE NRG FREE TEXT ENTRY 2 COLLECTION CONTAMINATION WITH SK IN HAWK NRG FREE TEXT ENTRY 3 NO SUSCEPTIBILITY PERFORMED NRG GLUCOSE GAIL 1 HOUR - 02/15/19 10:32 GLUCOSE, POSTPRANDIAL/ 1 HOUR 108 mg/dL See Note: CBC - 02/15/19 10:32 WHITE BLOOD CELL COUNT 6.2 Thousand/uL 3 .8-10.8 RED BLOOD CELL COUNT 3.56 Million/uL 3.8 0-5.10 HEMOGLOBIN 8.1 g/dL 11.7-15.5 HEMATOCRIT 26.2 % 35.0-45.0 MCV 73.6 fL 80.0-100.0 MCH 22.8 pg 27.0-33.0 MCHC 30.9 g/dL 32.0-36.0 RDW 14.4 % 11.0-15.0 PLATELET COUNT 249 Thousand/uL 140-400 MPV 12.9 fL 7.5-12.5 ABSOLUTE NEUTROPHILS 4284 cells/uL 1500- 7800 ABSOLUTE LYMPHOCYTES 1172 cells/uL 850-3 900 ABSOLUTE MONOCYTES 688 cells/uL 200-950 ABSOLUTE EOSINOPHILS 37 cells/uL 15-500 ABSOLUTE BASOPHILS 19 cells/uL 0-200 NEUTROPHILS 69.1 % NRG LYMPHOCYTES 18.9 % NRG MONOCYTES 11.1 % NRG EOSINOPHILS 0.6 % NRG BASOPHILS 0.3 % NRG SYPHILIS (RPR W/ REFLEX CONFIRMATION) - 02/15/19 10:32 RPR (DX) W/REFL TITER AND CONFIRMATORY TESTING NON-REACTIVE NON-REACTIVE Encounters ACCT No. Visit Date/Time Discharge Status Pt. Type Provider Facility Loc./Unit Complaint [id number] 02/27/2019 10:30:00 02/27/2019 23:59:5 9 [id number] 02/15/2019 09:45:00 Document Registration [id number] 11/29/2018 15:15:00 Document Registration [id number] 02/12/2019 19:43:00 21:19:00 DIS Emergency DELICIA THOMPSON, JAMES Farrell [facility] ER FS N,V,D,27 WEEKS [id number] 05/29/2018 08:08:00 12:59:00 DIS Emergency JESSI THOMPSON, DAVID Cooney [facility] ER VAGINAL BLEEDIN G/CLOTS;17 WKS
== END 2019-02-12 21:19 | disposition home or self-care (01) ==
LOC: EDUNIT# 19:39 → ER FS 19:43
DX: O99.612 Diseases of the digestive system complicating pregnancy, second trimester (principal); K52.9 Noninfective gastroenteritis and colitis, unspecified; Z3A.27 27 weeks gestation of pregnancy
CPT/HCPCS: 36415; 80053; 81000; 85007; 85027; 87088; 96361; 96374

== ENCOUNTER 2019-04-13 21:47 | Outpatient (CLI) | payer MEDICAID ==
[~2019-04-13] VITALS: Ht 154.9 cm; Wt 91.2 kg
[~2019-04-13 21:47] MED LIST changes: +ONDA4TAB11 PO; +ONDN4T PO
--- NOTE | 2019-04-13 21:50 | NUR ---
DARIEN MANCERA presented to unit via ambulation from ED, accompanied by family members, with c/o CONTRACTIONS. DARIEN MANCERA weighed, gowned, voided, and to bed. EFSD and TOCO applied, VS taken. DARIEN MANCERA oriented to bed controls, call light, TV, heat, and A/C controls.
[2019-04-13] MEDS ORDERED: PREN-142 PO (21:56)
[2019-04-13] MEDS ORDERED: FERR-84 PO (21:57)
[2019-04-13 22:12] LABS: BILIRUBIN,URINE NEGATIVE (NEGATIVE); CLARITY,URINE CLEAR; COLOR,URINE YELLOW; GLUCOSE, URINE (UA) NEGATIVE (NEGATIVE); KETONES,URINE 1+ (NEGATIVE); LEUKOCYTE ESTERASE ,URINE NEGATIVE (NEGATIVE); NITRITE,URINE NEGATIVE (NEGATIVE); PH,URINE 6.5 (5-9); PROTEIN,URINE NEGATIVE (NEGATIVE)
[2019-04-13 22:23] VITALS: BP 124/60
[2019-04-13 22:25] LABS: BACTERIA,URINE FEW /HPF; SQUAMOUS EPITHELIAL CELL,UR 0-2 /HPF; WBC,URINE 0-2 /HPF
[2019-04-13] MEDS ORDERED: LACTATED RINGERS 1,000 ML IV ONE (22:45)
[2019-04-13] MEDS ORDERED: D5 LR IV SOLUTION 1,000 ML IV ONE (23:48)
[2019-04-14] VITALS: BP 118/73
[2019-04-14] MEDS ORDERED: D5 LR IV SOLUTION 1,000 ML IV SCH
--- NOTE | 2019-04-14 07:33 | NUR ---
IV dc'd - pt ready for discharge. Outpatient OB instructions given. Discussed probably spotting from vaginal exams. Verbalizes understanding. Ambulated to exit with family.
--- NOTE | 2019-04-15 08:27 | Physician Query-Final Dx ---
DAMIAN HUANG 04/15/1929: Clinic Account Progress/Dx Physician Query: Please give diagnosis Please include # weeks gestation Date of Service Apr 13, 2019 at 21:47 IVONNE MARTINEZ DO 04/15/192045: Clinic Account Progress/Dx DIAGNOSIS: Diagnosis Intrauterine at 36 weeks 2. Contractions 3. Dehydration DAMIAN HUANG Apr 15, 2019 08:27 IVONNE MARTINEZ DO Apr 15, 2019 20:46
== END 2019-04-14 07:33 | disposition home or self-care (01) ==
LOC: WSo 21:47 → LDRP 21:47 → WSo 04-14 07:33
PROVIDERS: ATTEND Obstetrics & Gynecology
DX: Z34.93 Encounter for supervision of normal pregnancy, unspecified, third trimester (principal); E86.0 Dehydration; Z3A.36 36 weeks gestation of pregnancy
CPT/HCPCS: 81000; 96360; 99214

== ENCOUNTER 2019-04-22 20:50 | Outpatient (CLI) | payer MEDICAID ==
[~2019-04-22] VITALS: Ht 157 cm; Wt 91.0 kg
[~2019-04-22 20:50] MED LIST changes: +FERR-84 PO; +PREN-142 PO
--- NOTE | 2019-04-22 20:50 | NUR ---
DARIEN MANCERA presented to unit via ambulation from home, accompanied by Family, with c/o CONTRACTIONS. DARIEN MANCERA weighed, gowned, voided, and to bed. EFHM and TOCO applied, VS taken. DARIEN MANCERA oriented to bed controls, call light, TV, heat, and A/C controls.
[2019-04-22 21:01] VITALS: BP 134/64
[2019-04-22 22:10] VITALS: BP 120/56
--- NOTE | 2019-04-22 22:30 | NUR ---
D/C instructions given & explained, pt. verbalized understanding & signed, copy of D/C instructions to pt. Pt. left WS ambulatory, escorted by SO & mother, to home via private vehicle.
--- NOTE | 2019-04-23 09:26 | Physician Query-Final Dx ---
DAMIAN HUANG 04/23/19 0926: Clinic Account Progress/Dx Physician Query: Please give diagnosis Please include # weeks gestation Date of Service Apr 22, 2019 at 20:50 IVONNE MARTINEZ DO 04/29/19 0702: Clinic Account Progress/Dx DIAGNOSIS: Diagnosis Intrauterine at 37 weeks 2. Pelvic Pain 3. Contractions DAMIAN HUANG Apr 23, 2019 09:26 IVONNE MARTINEZ DO Apr 29, 2019 07:02
[2019-05-07] MEDS ORDERED: DCS100C PO (05:44)
[2019-05-07] MEDS ORDERED: ACET-93 PO (05:44)
[2019-05-07] MEDS ORDERED: IBUP-1780 PO (05:44)
[2019-05-07] MEDS ORDERED: OXC5T PO (05:44)
--- NOTE | 2019-05-07 07:19 | Anesthesia-Regional Post-Op ---
Regional Patient Condition Mental Status: Alert, Oriented x3 Circulation: Same as Pre-Op Headache: Absent Sensation: Full Recovery Motor Block: Absent Post Op Complications Complications None Follow Up Care/Instructions Patient Instructions None needed. Anesthesia/Patient Condition Patient is doing well, no complaints, stable vital signs, no apparent adverse anesthesia problems. No complications reported per nursing. BERNARDA LIU CRNA May 07, 2019 07:19
== END 2019-04-22 22:30 | disposition home or self-care (01) ==
LOC: WSo 20:50
PROVIDERS: ATTEND Obstetrics & Gynecology
DX: O26.893 Other specified pregnancy related conditions, third trimester (principal); O62.9 Abnormality of forces of labor, unspecified; R10.2 Pelvic and perineal pain; Z3A.37 37 weeks gestation of pregnancy
CPT/HCPCS: 99213

== ENCOUNTER 2019-05-06 05:50 | Inpatient (IN) | payer MEDICAID ==
[2019-05-06] VITALS (49 sets, daily range): BP systolic 81–137; BP diastolic 40–73
[~2019-05-06] VITALS: Ht 154.9 cm; Wt 94.0 kg
[~2019-05-06 05:50] MED LIST changes: +D5 LR IV SOLUTION 1,000 ML IV ONE
--- NOTE | 2019-05-06 05:55 | NUR ---
DARIEN MANCERA presented to unit via ambulation from ED, accompanied by s.o. and family member for induction of labor. DARIEN MANCERA weighed, gowned, voided, and to bed. EFHM and TOCO applied, VS taken. DARIEN MANCEAR oriented to bed controls, call light, TV, heat, and A/C controls.
[2019-05-06] MEDS ORDERED: CATHETER FLUSH 10 ML SYR IV PRN (06:00)
[2019-05-06] MEDS ORDERED: MINERAL OIL CONCENTRATE 99.9% 15 ML UDC TOP PRN (06:00)
[2019-05-06] MEDS: D5 LR IV SOLUTION 1,000 ML IV SCH ×2 (06:19→13:50)
[2019-05-06 06:20] LABS: BASOPHILS % (AUTO) 0 % (0-10); EOSINOPHILS % (AUTO) 0 % (0-10); HEMATOCRIT 28 % (35-52); HEMOGLOBIN 8.5 G/DL (11.5-16.0); LYMPHOCYTES # (AUTO) 1.5 X 10^3 (1.0-4.0); LYMPHOCYTES % (AUTO) 10 % (12-44); MEAN CORPUSCULAR HEMOGLOBIN 22 PG (25-34); MEAN CORPUSCULAR HGB CONC 30 G/DL (32-36); MEAN CORPUSCULAR VOLUME 74 FL (80-99); MONOCYTES # (AUTO) 1.6 X 10^3 (0.0-1.0); MONOCYTES % (AUTO) 11 % (0-12); NEUTROPHILS # (AUTO) 11.2 X 10^3 (1.8-7.8); NEUTROPHILS % (AUTO) 78 % (42-75); PLATELET COUNT 180 10^3/uL (130-400); RED CELL DISTRIBUTION WIDTH 17.8 % (10.0-14.5); WHITE BLOOD COUNT 14.3 10^3/uL (4.3-11.0)
[2019-05-06] MEDS ORDERED: SUFENTA 0.6MCG/ML BUPIVA 0.125 100 ML ONE (07:07)
[2019-05-06] MEDS ORDERED: BUPIVACAINE 0.25% 30 ML (SENSORCAINE) VIAL ONE (07:34)
[2019-05-06] MEDS ORDERED: fentaNYL INJECTION 100 MCG/2 ML AMP ONE (07:34)
--- NOTE | 2019-05-06 07:43 | History & Physical-OB/GYN ---
History of Present Illness History of Present Illness Reason for visit/HPI Pitocin Induction of Labor at 39 weeks Date of Admission May 06, 2019 at 05:50 Date Seen by a Provider: May 06, 2019 Time Seen by a Provider: 07:20 I consulted on this patient on 05/06/19 07:37 Attending Physician Enrique Francois DO Admitting Physician Enrique Francois DO Consult Allergies and Home Medications Allergies Coded Allergies: No Known Drug Allergies (Unverified , 05/29/18) Home Medications Ferrous Sulfate 325 Mg Tablet, 325 MG PO DAILY, (Reported) Vit No.124/Iron/FA 1 Each Tablet, 1 EACH PO DAILY, (Reported) Patient Home Medication List Home Medication List Reviewed: Yes Past Sxxtwsy-[place]ly[place] Hx Patient Social History Marrital Status: single Number of Children: 4 Number of living children: 4 Employed/Student: unemployed [employer] Hand Smoke Exposure: No Recent Foreign Travel: No Contact w/other who traveled: No Recent Hopitalizations: No Seasonal Allergies Seasonal Allergies: No Surgeries No Respiratory No Cardiovascular No Neurological No Genitourinary No Gastrointestinal No Musculoskeletal No Endocrine History of Endocrine Disorders: No HEENT History of HEENT Disorders: No Cancer No Psychosocial History of Psychiatric Problem: No Integumentary History of Skin or Integumenta: No Blood Transfusions History of Blood Disorders: No Review of Systems Constitutional: see HPI Physical Exam Physical Exam Vital Signs Vital Signs Date Time Temp Pulse Resp B/P (MAP) Pulse Ox O2 Delivery O2 Flow Rate FiO2 05/06/19 06:00 36.9 99 18 98 Room Air Capillary Refill : Less Than 3 Seconds Labs Laboratory Tests 05/06/19 06:05: White Blood Count 14.3H, Red Blood Count 3.84L, Hemoglobin 8.5L, Hematocrit 28L, Mean Corpuscular Volume 74L, Mean Corpuscular Hemoglobin 22L, Mean Corpuscular Hemoglobin Concent 30L, Red Cell Distribution Width 17.8H, Platelet Count 180, Mean Platelet Volume , Neutrophils (%) (Auto) 78H, Lymphocytes (%) (Auto) 10L, Monocytes (%) (Auto) 11, Eosinophils (%) (Auto) 0, Basophils (%) (Auto) 0, Neutrophils # (Auto) 11.2H, Lymphocytes # (Auto) 1.5, Monocytes # (Auto) 1.6H, Eosinophils # (Auto) 0.0, Basophils # (Auto) 0.0 General Appearance: No Apparent Distress, WD/WN Respiratory: Chest Non Tender, Lungs Clear Cardiovascular: Regular Rate, Rhythm, No Murmur Abdominal: normal bowel sounds, non tender Labia: WNL Vagina: WNL Cervix: WNL Cervix OS: open (2 cm) Uterus: Enlarged (gravid) Extremity: Normal Inspection, Non Tender, No Calf Tenderness Assessment/Plan Assessment and Plan Assessment: Intrauterine at 39 3/7 weeks Plan: Pitocin Induction of Labor. Artificial Rupture of Membranes. Epidural anesthesia. I expect a vaginal delivery. Admission Diagnosis Admission Status: Inpatient Order (span 2 midnights) Reason for Inpatient Admission: Pitocin Induction of Labor Clinical Quality Measures DVT/VTE Risk/Contraindication: Risk Factor Score Per Nursin RFS Level Per Nursing on Admit: 1=Low/No VTE ENRIQUE WARD DO May 06, 2019 07:43
[2019-05-06] MEDS ORDERED: FLU QUADRIvalent (5+ YOA) 2019-2020 (AFLURIA) 0.5 ML IM ONE (08:00)
[2019-05-06] MEDS ORDERED: OXYTOCIN PRE-MIX DRIP 500 ML IV ONE (08:17)
[2019-05-06] MEDS ORDERED: NALOXONE 0.4 MG/ML 1 ML (NARCAN) VIAL IV PRN (12:00)
[2019-05-06] MEDS ORDERED: LACTATED RINGERS 1,000 ML IV ONE ×2 (12:00)
[2019-05-06] MEDS ORDERED: ONDANSETRON 4 MG/2 ML (SDV) Z0FRAN IV PRN (12:00)
[2019-05-06] MEDS ORDERED: EPIDURAL (SUFENTA 0.6MCG/ML BUPIVA 0.125%) 100 ML BAG EPI PRN (12:00)
--- NOTE | 2019-05-06 15:49 | NUR ---
dr haynes massaging fundus no clots expressed.
--- NOTE | 2019-05-06 15:50 | NUR ---
pericare performed by dr haynes with chlorhex. assisted out of stirrups
--- NOTE | 2019-05-06 15:53 | NUR ---
epidural removed tip intact.
[2019-05-06] MEDS ORDERED: OXYTOCIN PRE-MIX DRIP 500 ML IV SCH (15:59)
[2019-05-06] MEDS ORDERED: TETANUS,DIPTH,PERTUSS P/F (BOOSTRIX) 0.5 ML VIAL IM ONE (16:00)
[2019-05-06] MEDS ORDERED: MEASLES,MUMPS,RUBELLA 1 EA INJ SQ ONE (16:00)
[2019-05-06] MEDS ORDERED: BENZOCAINE/MENTHOL (DERMOPLAST) 60 ML CAN TP PRN (16:00)
[2019-05-06] MEDS ORDERED: DIBUCAINE (NUPERCAINAL) 1% OINT 30 GM TOP PRN (16:00)
[2019-05-06] MEDS ORDERED: WITCH HAZEL(TUCKS) 40 EA JAR TOP PRN (16:00)
--- NOTE | 2019-05-06 16:05 | OB Labor & Delivery Record ---
Vag Delivery Note Vag Delivery Note Date of Delivery: 05/06/19 Preoperative Diagnosis: Karon Egan is a (24 /Para / ,Gestational Age (wks)39with [] Postoperative Diagnosis: Same Surgeon: IVONNE MARTINEZ Label Drier: [None] Anesthesia: [Epidural] Delivery Type: [Normal Spontaneous Vaginal Delivery] Findings: [] Viable [female] , apgars [9, 9], weight [8 lbs 9 oz] Lacerations: Superficial perineal body skin lacerations, hemostatic, not repaired Intact placenta with 3 vessel cord. No nuchal cord, body cord or shoulder dystocia Cytotec 800 mcg placed for hemorrhage prophylaxis Estimated Blood Loss: [300] ml Complications: None Condition: Stable Description of Procedure: The patient is a 24 year old female who presented [for Pitocin Induction of labor]. She was admitted and informed consent was obtained. Her labor course was unremarkable. She progressed to complete dilatation and began to push. She was then set up for delivery. The infant's head was delivered atraumatically in the [CRISTAL] position. The shoulders and remainder of the infant's body were then delivered without difficulty. Upon delivery, the head was held below the level of the perineum and the mouth and nares were bulb suctioned. The cord was doubly clamped and cut and the infant was handed off to the pediatric staff where NRP protocol was followed. An intact placenta with 3-vessel cord delivered via [place] and there was found to be minimal bleeding.~ Vigorous fundal massa ge was performed and the fundus was found to be firm. IV oxytocin was given. Examination of the vagina and perineum revealed a [superficial perineal body skin laceration--hemostatic, not repaired]. The sponge, instrument and needle counts were correct. Mom and baby were both in stable condition in the labor suite. Vitals - Labs Vital Signs - I&O Vital Signs Date Time Temp Pulse Resp B/P (MAP) Pulse Ox O2 Delivery O2 Flow Rate FiO2 05/06/19 14:10 73 18 110/66 (81) 96 Room Air 05/06/19 13:55 68 18 105/60 (75) 96 Room Air 05/06/19 13:40 70 18 108/59 (75) 96 Room Air 05/06/19 13:25 76 18 103/57 (72) 97 Room Air 05/06/19 13:10 73 18 105/57 (73) 97 Room Air 05/06/19 12:55 37.0 72 18 108/59 (75) 97 Room Air 05/06/19 12:40 88 18 106/58 (74) 97 Room Air 05/06/19 12:25 75 18 100/57 (71) 96 Room Air 05/06/19 12:10 79 18 103/51 (68) 96 Room Air 05/06/19 11:55 75 18 93/51 (65) 97 Room Air 05/06/19 11:40 75 18 96/55 (69) 95 Room Air 05/06/19 11:25 77 18 97/52 (67) 97 Room Air 05/06/19 11:10 83 18 97/58 (71) 96 Room Air 05/06/19 10:55 67 18 100/59 (73) 97 Room Air 05/06/19 10:40 82 18 99/58 (72) 97 Room Air 05/06/19 10:25 37.3 82 18 96/57 (70) 97 Room Air 05/06/19 10:05 86 18 101/55 (70) 97 Room Air 05/06/19 09:55 81 18 100/58 (72) 97 Room Air 05/06/19 09:35 77 18 99/57 (71) 96 Room Air 05/06/19 09:20 71 20 101/58 (72) 95 Room Air 05/06/19 09:10 73 20 99/56 (70) 96 Room Air 05/06/19 08:45 90 20 101/50 (67) 96 Room Air 05/06/19 08:30 78 20 101/58 (72) 96 Room Air 05/06/19 08:25 75 20 111/59 (76) 97 Room Air 05/06/19 08:20 79 20 105/56 (72) 97 Room Air 05/06/19 08:15 87 20 102/54 (70) 97 Room Air 05/06/19 08:10 82 20 115/63 (80) 97 Room Air 05/06/19 08:05 68 20 111/63 (79) 94 Room Air 05/06/19 08:02 70 20 107/56 (73) 94 Room Air 05/06/19 08:00 69 20 81/40 (54) 94 Room Air 05/06/19 07:55 109 20 128/67 (87) 98 Room Air 05/06/19 07:50 90 20 113/65 (81) 98 Room Air 05/06/19 07:45 37.2 89 20 114/68 (83) 98 Room Air 05/06/19 07:40 92 20 115/68 (84) 98 Room Air 05/06/19 07:10 90 20 111/58 (75) Room Air 05/06/19 06:00 36.9 99 18 98 Room Air Labs Laboratory Tests 05/06/19 06:05: White Blood Count 14.3H, Red Blood Count 3.84L, Hemoglobin 8.5L, Hematocrit 28L, Mean Corpuscular Volume 74L, Mean Corpuscular Hemoglobin 22L, Mean Corpuscular Hemoglobin Concent 30L, Red Cell Distribution Width 17.8H, Platelet Count 180, Mean Platelet Volume , Neutrophils (%) (Auto) 78H, Lymphocytes (%) (Auto) 10L, Monocytes (%) (Auto) 11, Eosinophils (%) (Auto) 0, Basophils (%) (Auto) 0, Neutrophils # (Auto) 11.2H, Lymphocytes # (Auto) 1.5, Monocytes # (Auto) 1.6H, Eosinophils # (Auto) 0.0, Basophils # (Auto) 0.0 IVONNE MARTINEZ DO May 06, 2019 16:05
[2019-05-06] MEDS: ACETAMINOPHEN 500 MG TAB (TYLENOL) PO SCH (16:19)
--- NOTE | 2019-05-06 16:45 | NUR ---
ffu/0 light flow. family present denies need.
--- NOTE | 2019-05-06 17:05 | NUR ---
infant at breast. mother reports no success with latch. infant placed in open crib. assisted mom into lithotomy fundal massage. u/0 light flow no clots expressed with massage or noted. new vpad to perineum. infant carried by this RN to mothers arms placed in football hold. 1715 nippleshield placed to breast. no suck effort noted. 1720 repositioned infant skin to skin on mothers chest. rooting for left breast. latch on achieved with use of nipple shield. 1735 to mothers bedside reports infant burped. infant at right breast rooting noted. 1742 latch achieved without shield and minimal staff support. denies further need. s/o at bedside.
[2019-05-06] MEDS: DOCUSATE SODIUM 100 MG (COLACE) CAP PO SCH (20:20)
[2019-05-06] MEDS: IBUPROFEN 800 MG (MOTRIN) TAB PO SCH (20:20)
[2019-05-06] MEDS ORDERED: CATHETER FLUSH 10 ML SYR IV SCH (22:00)
[2019-05-07] MEDS: ACETAMINOPHEN 500 MG TAB (TYLENOL) PO SCH ×3 (00:09→12:31)
[2019-05-07 00:10] VITALS: BP 116/53
[2019-05-07 04:10] VITALS: BP 112/58
[2019-05-07] MEDS: IBUPROFEN 800 MG (MOTRIN) TAB PO SCH ×2 (04:15→12:31)
[2019-05-07] MEDS ORDERED: IBUP-1780 PO (05:44)
[2019-05-07] MEDS ORDERED: DCS100C PO (05:44)
[2019-05-07] MEDS ORDERED: OXC5T PO (05:44)
[2019-05-07] MEDS ORDERED: ACET-93 PO (05:44)
--- NOTE | 2019-05-07 05:50 | Discharge Summary ---
Diagnosis/Chief Complaint Date of Admission May 06, 2019 at 05:50 Date of Discharge May 07, 2019 Discharge Date: May 07, 2019 Discharge Time: 16:00 Admission Diagnosis Admission Diagnosis Intrauterine at 39 3/7 weeks Discharge Diagnosis Intrauterine at 39 3/7 weeks--delivered Reason Hospital Visit Pitocin Induction of Labor at 39 weeks Discharge Summary Hospital Course Was the Problem List Reviewed?: Yes Hospital Course Ms. Egan was admitted for Pitocin Induction of Labor. She progressed to complete, then after a short course of pushing, delivered a healthy viable female infant. , she was started on oral pain management and other comfort measures. Day #1 found Ms. Egan without complaint with a desire to be discharged t home. Her vital signs remained stable throughout her hospitalization. I will discharge her to home with instructions, prescriptions and a follow up appointment. Labs Laboratory Tests 05/06/19 06:05: White Blood Count 14.3H, Red Blood Count 3.84L, Hemoglobin 8.5L, Hematocrit 28L, Mean Corpuscular Volume 74L, Mean Corpuscular Hemoglobin 22L, Mean Corpuscular H emoglobin Concent 30L, Red Cell Distribution Width 17.8H, Neutrophils (%) (Auto) 78H, Lymphocytes (%) (Auto) 10L, Neutrophils # (Auto) 11.2H, Monocytes # (Auto) 1.6H Procedures None. Discharge Physical Examination Allergies: Coded Allergies: No Known Drug Allergies (Unverified , 05/29/18) Vitals & I&Os Vital Signs Date Time Temp Pulse Resp B/P (MAP) Pulse Ox O2 Delivery O2 Flow Rate FiO2 05/07/19 04:10 36.1 82 18 112/58 (76) 97 05/06/19 17:06 Room Air General Appearance: Alert, Oriented X3, Cooperative, No Acute Distress HEENT: Atraumatic Respiratory: Clear to Auscultation, Normal Air Movement Cardiovascular: Regular Rate, No Murmurs Abdominal: Normal Bowel Sounds, No Tenderness Extremities: No Clubbing, No Cyanosis Skin: No Rashes Neuro: Normal Gait, Normal Speech Psych/Mental Status: Mental Status NL Discharge Home Medications Reviewed and agree with Discharge Medication list on patient's Discharge Instruction sheet Instructions to Patient/Family Please see electronic discharge instructions given to patient. Clinical Quality Measures DVT/VTE Risk/Contraindication: Risk Factor Score Per Nursin RFS Level Per Nursing on Admit: 1=Low/No VTE PPX IVONNE MARTINEZ DO May 07, 2019 05:50
[2019-05-07] MEDS ORDERED: PRENATAL VITAMIN 1 EA TAB PO SCH (07:00)
[2019-05-07 07:24] LABS: BASOPHILS % (AUTO) 0 % (0-10); EOSINOPHILS # (AUTO) 0.1 10^3/uL (0.0-0.3); EOSINOPHILS % (AUTO) 1 % (0-10); HEMATOCRIT 26 % (35-52); HEMOGLOBIN 7.7 G/DL (11.5-16.0); LYMPHOCYTES # (AUTO) 2.7 X 10^3 (1.0-4.0); LYMPHOCYTES % (AUTO) 19 % (12-44); MEAN CORPUSCULAR HEMOGLOBIN 23 PG (25-34); MEAN CORPUSCULAR HGB CONC 30 G/DL (32-36); MEAN CORPUSCULAR VOLUME 76 FL (80-99); MONOCYTES # (AUTO) 1.5 X 10^3 (0.0-1.0); MONOCYTES % (AUTO) 10 % (0-12); NEUTROPHILS # (AUTO) 9.9 X 10^3 (1.8-7.8); NEUTROPHILS % (AUTO) 70 % (42-75); PLATELET COUNT 145 10^3/uL (130-400); RED CELL DISTRIBUTION WIDTH 17.7 % (10.0-14.5); WHITE BLOOD COUNT 14.2 10^3/uL (4.3-11.0)
[2019-05-07 08:05] LABS: BAND NEUTROPHILS 1 %; HYPOCHROMASIA SLIGHT; LYMPHOCYTES % (MANUAL) 22 %; MONOCYTES % (MANUAL) 6 %; NEUTROPHILS % (MANUAL) 71 %
[2019-05-07 08:06] LABS: ANISOCYTOSIS SLIGHT; MICROCYTOSIS SLIGHT
[2019-05-07 08:24] VITALS: BP 129/74
[2019-05-07] MEDS: DOCUSATE SODIUM 100 MG (COLACE) CAP PO SCH (08:26)
--- NOTE | 2019-05-07 08:30 | NUR ---
THIS RN TO BEDSIDE, SELF INTRODUCED. PT SITTING UP ON THE SIDE OF THE BED. VS OBTAINED. MEDS GIVEN PO; SEE EMAR FOR FURTHER. INITIAL SHIFT ASSESSMENT COMPLETED; SEE INTERVENTION FOR FURTHER. POC FOR THE DAY REVIEWED, PT VERBALIZES UNDERSTANDING AND DENIES NEEDS OR QUESTIONS AT THIS TIME. CALL LIGHT WITHIN REACH.
[2019-05-07 12:30] VITALS: BP 131/81
--- NOTE | 2019-05-07 12:35 | NUR ---
PT SITTING UP ON THE SIDE OF THE BED. VS OBTAINED. MEDS GIVEN PO; SEE EMAR FOR FURTHER. S/O AT THE BEDSIDE. PT DENIES ANY NEEDS AT THIS TIME.
[2019-05-07 15:52] VITALS: BP 126/60
--- NOTE | 2019-05-07 16:00 | NUR ---
VS OBTAINED. DISCHARGE INSTRUCTIONS PROVIDED AND REVIEWED WITH PT, PT VERBALIZES UNDERSTANDING AND DENIES ANY QUESTIONS AT THIS TIME. PAPER SIGNED. FOLLOW UP APPOINTMENT CARD AND RX'S ALL PROVIDED AND PLACED INTO DISCHARGE FOLDER.
--- NOTE | 2019-05-07 18:25 | NUR ---
PT DISCHARGED FROM -309 TO [facility] VIA AMBULATORY IN STABLE CONDITION ACC BY S/O, FAMILY AND THIS RN. BELONGINGS IN HAND.
== END 2019-05-07 18:25 | disposition home or self-care (01) | DRG 807 ==
LOC: LDRP 05:50
PROVIDERS: ADMIT Obstetrics & Gynecology; ATTEND Obstetrics & Gynecology
PROC: 3E033VJ Introduction of Other Hormone into Peripheral Vein, Percutaneous Approach (ICD-10-PCS; 2019-05-06)
PROC: 10E0XZZ Delivery of Products of Conception, External Approach (ICD-10-PCS; principal; 2019-05-07)
DX: O70.0 First degree perineal laceration during delivery (principal); Z37.0 Single live birth; Z3A.39 39 weeks gestation of pregnancy
CPT/HCPCS: 36415; 85007; 85025; 85027; 86850; 86900; 86901